=== PATIENT | male | born 1950 | race Caucasian/White ===

== ENCOUNTER 2019-09-23 19:25 | Inpatient (IN) | payer MEDICARE, BC ==
--- NOTE | 2019-09-23 22:10 | PDOC.FPRHP ---
- History of Present Illness Chief Complaint: SOB History of Present Illness: Mr. Trejo is a 69yoM with a history of DMII, HTN, HLD and CAD who presents to the ED as a transfer from [place] for increasing SOB. He saw Dr. Reed in the ED in [place] who recommended he be transferred to [facility] for further evaluation. He has been having increasing shortness of breath, dyspnea on exertion, orthopnea, and paroxysmal nocturnal dyspnea for the last 2-3 months. He also complains of nocturia. He states he has been sleeping in his recliner because he cannot lie flat. He also has exertional chest pain that resolves with rest. He has no known history of congestive heart failure, but has had a CABG x4 in 2000 and a heart cath with stent placement 3 years ago. Has seen his PCP, Dr. Casper, recently and was recommended that he see a barmaid. He has an appt scheduled for 10/07 but could not be seen sooner and his symptoms have become intolerable. - Allergies/Adverse Reactions Allergies Allergy/AdvReac Type Severity Reaction Status Date / Time tramadol Allergy Verified 12/13/16 15:20 - Home Medications Medication Instructions Recorded Confirmed Type Aspirin [Ecotrin] 325 mg PO DAILY 10/25/16 09/23/19 History Fenofibrate Nanocrystallized 145 mg PO DAILY 10/25/16 09/23/19 History [Fenofibrate] Glyburide/Metformin HCl 2 tablet PO BID-WM 10/25/16 09/23/19 History [glyBURIDE/metFORMIN] Metoprolol Succinate [Toprol XL] 50 mg PO DAILY 10/25/16 09/23/19 History Multivitamin [Multivitamins] 1 tablet PO DAILY 10/25/16 09/23/19 History Pioglitazone HCl [Actos] 45 mg PO DAILY 10/25/16 09/23/19 History Isosorbide Mononitrate [Imdur] 120 mg PO DAILY 12/14/16 09/23/19 History Atorvastatin Calcium 80 mg PO DAILY 09/23/19 09/23/19 History Clopidogrel Bisulfate [Plavix] 75 mg PO DAILY 09/23/19 09/23/19 History Lisinopril 10 mg PO DAILY 09/23/19 09/23/19 History - History PMHx: DMII HTN HLD CAD (stents x2) PSHx: Bilateral shoulder surgeries Knee surgery (right) Left arm tendon repair CABG x4 2000 Normal colonoscopy 2018 FHx: Father: HTN, Mother: Colon cancer (60s) Sister: CAD Social: Social drinker (Sunday nights), denies tobacco or illicit drugs. Former smoker, quit 2000, smoked 1ppd x 40 years. - Review of Systems General: denies: fever/chills, weight/appetite/sleep changes, night sweats, fatigue Eyes: reports: vision changes. denies: eye pain ENT: denies: nasal congestion, rhinorrhea Respiratory: reports: shortness of breath. denies: cough, congestion Cardiovascular: reports: chest pain, edema, paroxysmal nocturnal dyspnea, orthopnea Gastrointestinal: denies: nausea, vomiting, diarrhea, constipation, abdominal pain, GI bleeding Genitourinary: denies: incontinence, dysuria, polyuria Skin: denies: rashes, lesions Musculoskeletal: denies: pain, tenderness, stiffness Neurological: denies: numbness, syncope, weakness - Vital signs Selected Entries 09/24/19 01:00 Temperature 97.3 F L Pulse Rate 72 Blood Pressure 130/59 L [Semi-Fowlers] Respiratory 18 Rate O2 Sat by Pulse 95 Oximetry Oxygen Flow 2 Rate - Physical Exam Constitutional: NAD, awake, alert and oriented HEENT: normocephalic and atraumatic, PERRLA, EOMI, conjunctiva clear, grossly normal vision, grossly normal hearing, MMM Neck: supple, FROM, trachea midline Heart: RRR, normal S1/S2, no murmurs/rubs/gallops, pulses present -Heart: 1+ edema to the breen bilaterally Lungs: CTAB, no respiratory distress, good air movement, no rales/rhonchi, no wheezing Abdomen: soft, non-tender, bowel sounds present Musculoskeletal: normal structure, normal tone Neurological: no focal deficit, CN II-XII intact Skin: no rash/lesions, good turgor, capillary refill <2 seconds Heme/Lymphatic: no unusual bruising or bleeding, no purpura, no petechia Psychiatric: normal mood and affect, good judgment and insight FMR H&P: Results - Labs Lab results: Laboratory Tests 09/23/19 09/24/19 21:08 00:26 Troponin I 0.010 Less than 0.010 Laboratory Tests 09/23/19 09/23/19 09/23/19 13:00 13:00 13:00 WBC 4.7 L RBC 4.49 L Hgb 12.2 L Hct 41.4 L Plt Count 195 D-Dimer 2.25 H Sodium Potassium Chloride Carbon Dioxide Anion Gap BUN Creatinine Estimated GFR (MDRD) Calcium Total Bilirubin AST ALT Alkaline Phosphatase Troponin I Less than 0.010 B-Natriuretic Peptide Serum Total Protein Albumin Globulin Albumin/Globulin Ratio 09/23/19 09/23/19 09/23/19 13:00 13:00 21:08 WBC RBC Hgb Hct Plt Count D-Dimer Sodium 144 Potassium 4.0 Chloride 104 Carbon Dioxide 27 Anion Gap 17 BUN 14 Creatinine 1.20 Estimated GFR (MDRD) 60 Calcium 8.3 Total Bilirubin 0.5 AST 20 ALT 19 Alkaline Phosphatase 99 Troponin I 0.010 B-Natriuretic Peptide 85.1 Serum Total Protein 7.0 Albumin 4.2 Globulin 2.8 Albumin/Globulin Ratio 1.5 09/24/19 00:26 WBC RBC Hgb Hct Plt Count D-Dimer Sodium Potassium Chloride Carbon Dioxide Anion Gap BUN Creatinine Estimated GFR (MDRD) Calcium Total Bilirubin AST ALT Alkaline Phosphatase Troponin I Less than 0.010 B-Natriuretic Peptide Serum Total Protein Albumin Globulin Albumin/Globulin Ratio - EKG Interpretation EKG: NSR, rate 66BPM. T wave inversions in V1 V2 V3. - Radiology Interpretation Chest x-ray Status: report reviewed by me (Mild fluid overload suggestive of congestive heart failure.) CT scan - chest Status: report reviewed by me (CTA: No left sided pleural effusion or pericaridal effusion. Moderate right sided pleural effusion w/ adjacent atelectasis. No evidence of pulmonary embolism or thoracic aortic aneurysm or dissection.) FMR H&P: A/P - Plan CHF, new onset - Patient is unaware of this diagnosis. Has significant cardiac history. - Dr. Reed aware of patient, will consult him in the morning. - Echo ordered for AM - 40mg Lasix BID - NPO at midnight for possible procedure tomorrow, [place] note mentioned possible cath. - HF clinic consulted, rehab screen placed - BNP 85.1. Chest X-ray showed evidence of fluid overload. CTA showed evidence of right sided pleural effusion. Stable Angina vs Deconditioning - Initial EKG showed ST depressions in leads I, II and T-wave inversions in V1- v3. Repeat EKG showed resolution of ST depressions. - Significant CAD history DMII - On oral medications. - Will restart home medications tomorrow after cardiology evaluation. HTN - Resume home medications HLD - Resume home medications Anemia - Hemoglobin 12.4 - iron studies, b12, rbc folate ordered Disposition/LOS: Dispo: Stable, inpatient, likely LOS > 48 hours. Diet: NPO after midnight IV fluids: SL Code Status: Full FMR H&P: Upper Level - Plan Date/Time: 09/23/192209 PCP: Pennie HPI: This is a 69 yo gentleman being admitted for workup of new onset CHF. Significant hx includes CABG and CAD with stents x2 three years ago. 40 pack- year smoking history. He stopped smoking in 2000. He saw Dr. Reed in the office at [place] today and had an o2 sat in the 80s and thus was sent to the ED. The patient states that for the last 3 months or so he has been getting progressively more short of breath. He has been sleeping in his recliner most nights as this is more comfortable than laying down for him. The patient states that at baseline he would be able to walk around the grocery store but if he goes fast he would get short of breath. Additionally, he states that he consistently gets chest pressure with exertion which resolves with rest. He is having no pain at the moment. REVIEW OF SYSTEMS: Gen: no fever, chills, or sweats Neuro: no numbness/tingling, no weakness, denies headache Eyes: no visual changes ENT: no hearing changes, no sore throat, no runny nose Resp: see hpi Card: see hpi GI: no N/V/D, no abdominal pain : no dysuria, no hematuria MSK: no myalgias, no joint pain/stiffness Heme: no easy bruising/bleeding, no blood thinners Skin: no rash, no erythema Vitals: T: 97.5 R: 18 BP: 149/87 P:67 Sat: 95% on 1L PHYSICAL EXAMINATION: General: NAD, alert and oriented x3 HEENT: PERRLA, EOMI, normal sclera, oropharynx without erythema or exudate Neck: Supple. Full ROM. Heart/Cardiovascular System: RRR, Cap refill < 3 seconds, no rub, no murmur Lungs/Respiratory System: clear to auscultation bilaterally. No increased work of breathing. Abdomen/Gastro-Intestinal System: no abdominal tenderness, normal bowel sounds, no masses, no organomegaly Extremities: Warm extremities. +1 edema at ankles bilaterally Neuro: No gross deficits appreciated. CN 2-12 grossly intact Psychiatry: Awake, Alert and cooperative with exam Skin: No lesions, rashes, or ulcers Musculoskeletal: Full ROM A/P: # New-onset CHF - Patient denies having this diagnosis in the past - Is on BB, Johnathan-I at home - Echo, Lasix 40mg BID, consult Dr. Reed in AM, note from [place] mentions plan for cath o Npo at midnight - HF clinic consulted, rehab screen placed - BNP 85.1, CXR shows mild pulm edema, no effusion # Stable Angina, Deconditioning - Initial EKG showed ST dep I, II and T inv V1-v3, ST dep resolved on repeat - Trop neg x2 - Hx of cabg, stent x2 three years ago - CTA neg for PE # DMII - Restart home meds after cards eval # HTN, HLD - home meds # Anemia - hgb 12.4 - iron studies, b12, rbc folate ordered Fluids: TKO Code status: full PPx: heparin Dispo: >2 midnights
[2019-09-23] MEDS ORDERED: Acetaminophen 325 MG TAB PO PRN (23:00)
[2019-09-24 00:52] LABS: Troponin I Less than 0.010 ng/mL (< 0.028)
[2019-09-24 02:06] VITALS: BMI 32.9
[2019-09-24 05:25] LABS: Anion Gap 18 mmol/L (10-20); BUN (Urea Nitrogen) 16 mg/dL (8.4-25.7); Calc. Creatinine Clearance 93 mL/min (70-130); Calcium 8.6 mg/dL (7.8-10.44); Carbon Dioxide 24 mmol/L (23-31); Chloride 103 mmol/L (98-107); Estimated GFR-MDRD 71; Glucose 111 mg/dL (80-115); Iron 65 ug/dL (65-175); Iron Binding Capacity, Total 451 mcg/dL (261-462); Potassium 4.4 mmol/L (3.5-5.1); Sodium 141 mmol/L (136-145)
[2019-09-24] MEDS: Furosemide 40 MG/4 ML VIAL SLOW IVP SCH ×2 (05:28→14:20)
[2019-09-24 06:03] LABS: Ferritin 38.44 ng/mL (22-322)
--- NOTE | 2019-09-24 06:24 | PDOC.FM ---
- Subjective Subjective: Pt c/o being SOB overnight, but that it has improved since being here. Pt states he was Dx with COPD by Dr. Boyce, and prescribed an inhaler he only used for a little while. Never refilled script. Pt never had a sleep study, but one was ordered for suspected AAYUSH. Denies CP. - Objective MAR Reviewed: Yes Vital Signs & Weight: Vital Signs (12 hours) Temp Pulse Resp BP Pulse Ox 09/24/19 04:00 97.4 F L 80 18 137/67 93 L 09/24/19 01:00 97.3 F L 72 18 130/59 L 95 Weight Weight 99.847 kg Result Diagrams: 09/24/19 03:30 Phys Exam - Physical Examination Constitutional: NAD HEENT: PERRLA, moist MMs, sclera anicteric Neck: no nodes, supple, full ROM Respiratory: no wheezing, no rales, no rhonchi, clear to auscultation bilateral Cardiovascular: RRR, no significant murmur, no rub Gastrointestinal: soft, non-tender, no distention, positive bowel sounds obese Musculoskeletal: no edema, pulses present Neurological: non-focal, normal sensation, moves all 4 limbs Psychiatric: normal affect, A&O x 3 Skin: no rash, normal turgor, cap refill <2 seconds Dx/Plan (1) CHF (congestive heart failure) Code(s): I50.9 - HEART FAILURE, UNSPECIFIED Status: Acute (2) Diabetes mellitus, type II Status: Acute (3) HTN (hypertension) Code(s): I10 - ESSENTIAL (PRIMARY) HYPERTENSION Status: Acute (4) HLD (hyperlipidemia) Code(s): E78.5 - HYPERLIPIDEMIA, UNSPECIFIED Status: Acute (5) CAD (coronary artery disease) Code(s): I25.10 - ATHSCL HEART DISEASE OF [place] CORONARY ARTERY W/O ANG PCTRS Status: Acute (6) COPD (chronic obstructive pulmonary disease) Status: Chronic - Plan Plan: 69 y/o M admited for new onset CHF for further evaluation and treatment. 1. CHF, new onset - Patient is unaware of this diagnosis. Has significant cardiac history. - Dr. Reed aware of patient, will consult him in the morning. - Echo ordered for AM - 40mg Lasix BID - NPO at midnight for possible procedure tomorrow, [place] note mentioned possible cath. - HF clinic consulted, rehab screen placed - BNP 85.1. Chest X-ray showed evidence of fluid overload. CTA showed evidence of right sided pleural effusion. 2. Stable Angina vs Deconditioning - Initial EKG showed ST depressions in leads I, II and T-wave inversions in V1- v3. Repeat EKG showed resolution of ST depressions. - Significant CAD history 3. DMII - On oral medications. - Will restart home medications tomorrow after cardiology evaluation. 4. HTN - Resume home medications 5. HLD - Resume home medications 6. Anemia - Hemoglobin 12.4 - iron studies, b12, rbc folate ordered 7. COPD - Pt dx by Dr. Boyce - Will prescribe Spriva upon d/c. Disposition/LOS: Dispo: Stable, inpatient, likely LOS > 48 hours. Diet: NPO after midnight IV fluids: SL Code Status: Full
[2019-09-24] MEDS: Heparin 5,000 UNITS/ML VIAL SC SCH ×3 (09:27→19:35)
[2019-09-24] MEDS: Aspirin 81 mg Enteric Coated Tablet PO SCH (09:29)
[2019-09-24] MEDS: Fenofibrate Nanocrystallized 145 MG TAB PO SCH (09:30)
[2019-09-24] MEDS: Lisinopril 10 MG TAB PO SCH (09:30)
[2019-09-24] MEDS: Multivitamin W/ Minerals 1 TAB PO SCH (09:30)
[2019-09-24] MEDS ORDERED: Ferrous Sulfate 325 MG TAB PO SCH ×2 (10:00→10:15)
[2019-09-24] MEDS ORDERED: Cyanocobalamin (Vitamin B-12) 1,000 MCG TAB PO SCH ×2 (10:00→10:15)
[2019-09-24 11:40] LABS: Actual Bicarbonate (HCO3a) 33.2 mEq/L (22-28); Analyzer IN Cardio OR; Base Excess (BEa) 7.3 mEq/L (-2.0 to +3.0); CO2 Tension 52.6 mmHg (35.0-45.0); Calcium, Ionized 1.07 mmol/L (1.12-1.30); Carboxyhemoglobin (COHb) 1.7 gm% (0.0-3.0); Hemoglobin (Hb) 12.7 g/dL (14.0-18.0); Potassium - ABG Lab 3.67 mmol/L (3.70-5.30); pH, Arterial 7.42 (7.35-7.45)
[2019-09-24 11:41] LABS: O2 Tension (PaO2) 48.8 mmHg (> 70.0)
[2019-09-24 11:42] LABS: Puncture Site LB
--- NOTE | 2019-09-24 11:44 | PRG ---
DATE OF SERVICE: 09/24/2019 Mr. Trejo is a very pleasant, obese 69-year-old man, who saw Dr. Reed at [place] [facility] yesterday. At that time, he had presented with a 2-week history of increased dyspnea on exertion, paroxysmal nocturnal dyspnea, and orthopnea. Dr. Reed recommended that he come to our ER, where he was subsequently admitted for heart failure workup. He also has a history of COPD and saw a clipper machine within the last year. He was told at one point that he needs a sleep study. He is a very obese gentleman and looks like he likely does have AAYUSH. In the event, we are awaiting further workup from Dr. Reed. We will also check a room air arterial blood gas. He has already been found to have an iron deficiency anemia and B12 deficiency, and we are reinstituting treatment for these as well. Job ID: [id number]
[2019-09-24] MEDS ORDERED: Cyanocobalamin 1000 MCG/ML VIAL IM SCH (14:45)
[2019-09-24] MEDS ORDERED: HumaLOG 300 UNITS/3 ML VIAL SC PRN (17:35)
[2019-09-24] MEDS ORDERED: Dextrose 50% Abboject 50 ML SYRINGE SLOW IVP PRN (17:35)
[2019-09-24] MEDS ORDERED: Dextrose 5% in Water 1,000 ML IV PRN (17:35)
--- NOTE | 2019-09-24 18:19 | CON ---
DATE OF CONSULTATION: 09/24/2019 REASON FOR CONSULTATION: Shortness of breath. HISTORY OF PRESENT ILLNESS: Mr. Trejo is a very pleasant 69-year-old white gentleman, very well known to myself, who comes to the hospital for shortness of breath. He was seen yesterday in my satellite clinic in [place]. He described 2 to 3 months worth of worsening dyspnea on exertion that had progressed to PND and orthopnea 2 or 3 weeks prior. He had been sleeping on his recliner for the last few weeks. He had lower extremity edema and reduced breath sounds, so I referred him to the ER there in [place], where he was admitted and transferred over to [place] for further care. He has received IV Lasix and is already diuresed and feeling better, but he continues to have shortness of breath and need for supplemental oxygenation. PAST MEDICAL HISTORY: 1. Type 2 diabetes. 2. Hypertension. 3. Hyperlipidemia. 4. CAD, status post CABG in 2000 and stents more recently to the right coronary artery. PAST SURGICAL HISTORY: 1. Bilateral shoulder surgeries. 2. Knee surgery. 3. Left arm tendon repair. 4. CABG x4 in 2000. 5. Colonoscopy in 2018, which was normal. FAMILY HISTORY: Father with high blood pressure. Mother with colon cancer. Sister with CAD. SOCIAL HISTORY: Social alcohol use. No tobacco or drug use. Quit smoking in 2000. OUTPATIENT MEDICATIONS: 1. Aspirin 325 a day. 2. Fenofibrate. 3. Glyburide. 4. Toprol-XL 50 mg a day. 5. Multivitamin daily. 6. Actos 45 mg a day. 7. Isosorbide mononitrate 120 mg a day. 8. Atorvastatin 80 mg a day. 9. Plavix 75 mg a day. 10. Lisinopril 10 mg a day. ALLERGIES: TRAMADOL. REVIEW OF SYSTEMS: A 12-point review of systems was done and was all negative unless stated in the history of present illness. PHYSICAL EXAMINATION: VITAL SIGNS: Temperature 98.0, pulse 86, respiratory rate 18, saturations 94% on 2 L nasal cannula, blood pressure 90/57. GENERAL: Awake, alert, and oriented x3. No distress. HEENT: Normocephalic and atraumatic. NECK: Supple. LUNGS: Reduced breath sounds at the right base. Dullness to percussion. CARDIOVASCULAR: S1 and S2. No S3 or S4. Grade 2/6 systolic ejection murmur. ABDOMEN: Soft. Positive bowel sounds. EXTREMITIES: No edema. SKIN: Warm and dry. LABORATORY DATA: Laboratory work was reviewed. White count of 4.7, hemoglobin 12.2, hematocrit 41, platelet count of 195. Coags, D-dimer was elevated. ABG was reviewed. Chemistry on arrival; his BUN was 14, creatinine was 1.2, and glucose of 192. Lactic acid was normal. Calcium is 8.3. Troponin has been negative x3. LFTs were normal. BNP was 85. Albumin of 4.2. EKG was reviewed. Echocardiogram was reviewed, EF at 50% to 55% with grade 1 diastolic dysfunction, and calcified aortic valve with immobile noncoronary cusp, so hemodynamic measurements suggest moderate aortic valve stenosis. CT of the chest showed moderate-sized right-sided pleural effusion. ASSESSMENT: 1. Acute on chronic diastolic heart failure, improved. 2. Right-sided pleural effusion. 3. Coronary artery disease, status post bypass and stenting more recently, stable. No acute coronary syndrome. PLAN: 1. We would continue IV Lasix for one more day. We would consult Pulmonary/Critical Care. I already spoke with Dr. Mcclelland about the CAT scan and the situation, and he will evaluate the patient for possible thoracentesis. 2. Continue other medications for now. Okay to hold Plavix for now until procedures performed. Thank you for letting us to participate in the care of your patient. We will follow. Job ID: [id number]
[2019-09-24] MEDS: HumaLOG 300 UNITS/3 ML VIAL SC PRN (18:34)
--- NOTE | 2019-09-24 20:59 | CON ---
DATE OF CONSULTATION: 09/24/2019 SERVICE: Pulmonary Medicine. REASON FOR CONSULTATION: Pleural effusion. HISTORY OF PRESENT ILLNESS: The patient is a 69-year-old white male with past medical history significant for coronary artery disease. He had a stent placed and has a history of coronary artery bypass graft. He was in his usual state of health until about a month ago when he had onset of dyspnea on lying down. Immediately when he lies down, he feels short of breath. It takes about 30 to 45 seconds for him to catch his breathe. After this point, he feels better. He was also having increasing dyspnea on exertion. This has been slowly progressive over a period of a month. He denies any fevers or chills. He is not coughing or bringing up any phlegm. He has a remote history of what looked like obstructive sleep apnea. He is referred for polysomnogram, but never carried this out. Otherwise, he is in his usual state of health. He came to the emergency department, was given some Lasix. He has had significant urine output. Now, he can lie flat without much difficulty. There are no significant overnight events. He actually feels like he has returned to baseline. He got up and walked without oxygen, his saturations fell to 85%. He felt just fine, but he was put back on oxygen anyway. PAST MEDICAL HISTORY: 1. Coronary artery disease. 2. Chronic diastolic heart failure. 3. Type-2 diabetes mellitus. 4. Hypertension. 5. Dyslipidemia. PAST SURGICAL HISTORY: 1. Shoulder surgeries, bilateral. 2. Knee surgery, right. 3. Arm tendon repair, left. 4. Coronary artery bypass graft x4 vessels. 5. Colonoscopy. FAMILY HISTORY: Noncontributory. SOCIAL HISTORY: He drinks particularly on the weekends. Denies any alcohol or illicit drugs otherwise. He has no exposure to chemicals, dust, asbestos, or tuberculosis. ALLERGIES: TRAMADOL. MEDICATIONS: List of his inpatient medications was reviewed. No specific updates were made at this time. REVIEW OF SYSTEMS: General; head, ears, eyes, nose, throat; cardiovascular; respiratory; GI; ; musculoskeletal; neurologic; and skin are negative except as mentioned in the HPI. PHYSICAL EXAMINATION: VITAL SIGNS: Afebrile. Pulse 77, blood pressure 129/64, respirations 18, saturation 94%, currently on room air. GENERAL: The patient is awake and alert, in no apparent distress. LUNGS: There is a reduced air entry. There is a prolonged expiratory phase, but I do not hear any polyphonic wheezing or crackles present. HEART: Normal rate, regular. ABDOMEN: Soft, nontender, nondistended. Bowel sounds are positive. MUSCULOSKELETAL: No cyanosis or clubbing. No pitting in the bilateral lower extremities. NEUROLOGIC: Grossly nonfocal. LABORATORY DATA: Sodium 141, potassium 4.4, anion gap 18. Creatinine 1.04, which is at baseline. Basic metabolic profile is otherwise unremarkable. Iron profile falls within the normal limits. B12 is low and folate falls within normal limits. PH 7.42, pCO2 of 52, pO2 of 48. Hemoglobin 12.2, MCV 92. RDW is small. D- dimer 2.25. IMAGING DATA: CTA of the chest demonstrates no evidence of a pulmonary embolism. That being said, there is a right-sided pleural effusion. It has the appearance of not being simply layering. That being said, I feel it is probably some chest scar tissue preventing a simple effusion from developing. Mild interstitial fullness is present, there is clear atelectasis in the right lung base. The RV and RA are generous. The left atrium is also generous. There is minimal reflux of contrast into the inferior vena cava. ASSESSMENT: 1. Acute hypoxic respiratory failure. 2. [id number]-xdddeop diastolic heart failure, suspected. 3. Chronic obstructive pulmonary disease based on what the patient is telling me from outpatient PFTs. 4. Vitamin B12 deficiency. 5. Obstructive sleep apnea, suspected. DISCUSSION AND PLAN: The patient has done absolutely wonderful with nothing, but diuretics. At this point, he can lie supine without shortness of breath that he has been experiencing for the last month. As such, I think it would be perfectly reasonable to hold his Plavix for the time being, and have him return to clinic with Dr. Boyce in the outpatient setting in 1 to 2 weeks with a preclinic chest x- ray. At that point, the patient can be referred for polysomnogram to investigate suspected obstructive sleep apnea. If he remains in the hospital, Dr. Boyce will follow, but from my perspective, he is likely stable for discharge today or tomorrow if Cardiology is okay with it. 70 minutes have been devoted to this patient in various activities. I personally reviewed all imaging studies and laboratory data noted within this document. For fifty percent of this time, I was interacting with the patient at the bedside or coordinating care with the care team. For the remainder of the time I was immediately available to the patient in the hospital unit. Job ID: [id number] [facility]
[2019-09-24] MEDS ORDERED: Atorvastatin Calcium 40 MG TAB PO SCH (21:00)
[2019-09-25] MEDS: Furosemide 40 MG/4 ML VIAL SLOW IVP SCH (05:32)
--- NOTE | 2019-09-25 06:33 | PDOC.FM ---
- Subjective Subjective: Pt denies any current CP or SOB. States his SOB has greatly improved since admission. down 2 lbs from admission. - Objective MAR Reviewed: Yes Vital Signs & Weight: Vital Signs (12 hours) Temp Pulse Resp BP Pulse Ox 09/25/19 04:00 97.7 F 68 16 90/50 L 94 L 09/24/19 20:00 97.4 F L 73 18 98/56 L 92 L 09/24/19 18:37 77 101/56 L Weight Weight 97.976 kg I&O: 09/23/19 09/24/19 09/25/19 06:59 06:59 06:59 Intake Total 360 Output Total 850 Balance -490 Result Diagrams: 09/24/19 03:30 Phys Exam - Physical Examination Constitutional: NAD HEENT: moist MMs, sclera anicteric Neck: no nodes, no JVD, supple, full ROM Respiratory: no wheezing, no rales, no rhonchi, clear to auscultation bilateral Cardiovascular: RRR, no rub Gastrointestinal: soft, non-tender, no distention, positive bowel sounds Musculoskeletal: no edema, pulses present Neurological: non-focal, normal sensation, moves all 4 limbs Psychiatric: normal affect, A&O x 3 Skin: no rash, normal turgor, cap refill <2 seconds Dx/Plan (1) CHF (congestive heart failure) Code(s): I50.9 - HEART FAILURE, UNSPECIFIED Status: Acute Qualifiers: Heart failure type: diastolic Heart failure chronicity: chronic Qualified Code(s): I50.32 - Chronic diastolic (congestive) heart failure (2) Diabetes mellitus, type II Status: Acute (3) HTN (hypertension) Code(s): I10 - ESSENTIAL (PRIMARY) HYPERTENSION Status: Acute (4) HLD (hyperlipidemia) Code(s): E78.5 - HYPERLIPIDEMIA, UNSPECIFIED Status: Acute (5) CAD (coronary artery disease) Code(s): I25.10 - ATHSCL HEART DISEASE OF [place] CORONARY ARTERY W/O ANG PCTRS Status: Acute (6) COPD (chronic obstructive pulmonary disease) Status: Chronic - Plan Plan: 69 y/o M admitted for new onset CHF for further evaluation and treatment. 1. CHF, new onset. HFpEF - Patient is unaware of this diagnosis. Has significant cardiac history. - Dr. Brianna consulted and following pt. Recommended full day of IV lasix therapy, hold plavix and out pt f/u with [facility]. - Echo: EF50-55%, grade 1/3 diastolic dysfunction. - 40mg Lasix BID - HF clinic consulted, rehab screen placed - BNP 85.1. Chest X-ray showed evidence of fluid overload. CTA showed evidence of right sided pleural effusion. - weight down 2 lbs since admission. Adequate diuresis. 2. Stable Angina vs Deconditioning - Initial EKG showed ST depressions in leads I, II and T-wave inversions in V1- v3. Repeat EKG showed resolution of ST depressions. - Significant CAD history 3. DMII - On oral medications. - Will restart home medications tomorrow after cardiology evaluation. 4. HTN - Resume home medications 5. HLD - Resume home medications 6. Anemia - Hemoglobin 12.4 - Consistent with iron and B12 deficiency - Started daily B12 and iron supplementation. 7. COPD - Pt dx by Dr. Boyce previously - Will prescribe Spriva upon d/c. - duonebs BID while hospitalized. - RA ABG: pH 7.42, CO2 52.6, O2 48.8, HCO3 33.2, A-a 35.18 - Will f/u with [facility] out pt and receive Polysomograpy and PFT's. Suspected AAYUSH. Disposition/LOS: Dispo: Stable, inpatient, likely LOS > 48 hours. Diet: NPO after midnight IV fluids: SL Code Status: Full
[2019-09-25] MEDS ORDERED: Ferrous Sulfate 325 MG TAB PO SCH (08:00)
[2019-09-25] MEDS ORDERED: Cyanocobalamin (Vitamin B-12) 1,000 MCG TAB PO SCH (09:00)
--- NOTE | 2019-09-25 09:53 | PRG ---
DATE OF SERVICE: 09/25/2019 SUBJECTIVE: Jay Jay Trejo is a 69-year-old gentleman, who is admitted with respiratory failure. He is feeling better. Less short of breath. OBJECTIVE: VITAL SIGNS: 2 L, respiratory rate 18, temperature 97, and blood pressure 108/59. CHEST: Decreased breath sounds. No wheezing. CARDIAC: Normal S1 and S2. No gallops. ABDOMEN: No masses. ASSESSMENT: 1. Morbid obesity. 2. Congestive heart failure. 3. Chronic obstructive pulmonary disease. PLAN: He can be discharged home on neb treatments. Outpatient sleep study. We will follow in the office. Job ID: [id number]
[2019-09-25] MEDS: Heparin 5,000 UNITS/ML VIAL SC SCH ×2 (09:56→14:59)
[2019-09-25] MEDS: Fenofibrate Nanocrystallized 145 MG TAB PO SCH (09:56)
[2019-09-25] MEDS: Aspirin 81 mg Enteric Coated Tablet PO SCH (09:56)
[2019-09-25] MEDS: Lisinopril 10 MG TAB PO SCH (09:57)
[2019-09-25] MEDS: Multivitamin W/ Minerals 1 TAB PO SCH (09:58)
--- NOTE | 2019-09-25 12:26 | PRG ---
DATE OF SERVICE: 09/25/2019 Mr. Trejo is resting quietly in bed and appears in no distress. The results of his arterial blood gases on room air were quite interesting with a pH of 7.42, pCO2 of 52.6, and PO2 of 48.8. These numbers suggest that he will be a candidate for long-term oxygen therapy and this has been explained to him. I believe his condition results from a combination of COPD, probable AAYUSH, and diastolic heart failure. He will need close followup for his condition and many medications. This has been explained to him and otherwise he is ready for discharge probably today. Job ID: [id number]
[2019-09-25] MEDS: HumaLOG 300 UNITS/3 ML VIAL SC PRN ×2 (12:36→17:06)
[2019-09-25 15:11] LABS: Folate,Hemolysate 490.9 ng/mL (Not Estab.); Hematocrit 38.3 % (37.5-51.0); RBC Folate Test Component 1282 ng/mL (>498)
[2019-09-25 17:29] VITALS: BP 114/59
--- NOTE | 2019-09-25 17:37 | PDOC.CPN ---
- Subjective Date: 09/25/19 Time: 17:34 Interval history: Doing better. Breathing better but still requiring O2 supplementation. - Review of Systems General: denies: fever/chills, weight/appetite/sleep changes, night sweats, fatigue Respiratory: reports: shortness of breath. denies: cough, congestion, exercise intolerance Cardiovascular: denies: chest pain, palpitation, edema, paroxysmal nocturnal dyspnea, orthopnea Gastrointestinal: denies: nausea, vomiting, diarrhea, constipation, abd pain, GI bleeding Musculoskeletal: denies: pain, tenderness, stiffness, swelling, arthritis/ arthralgias Neurological: denies: numbness, syncope, seizure, weakness - Objective Allergies/Adverse Reactions: Allergies Allergy/AdvReac Type Severity Reaction Status Date / Time tramadol Allergy Verified 12/13/16 15:20 Visit Medications: Current Medications Acetaminophen (Tylenol) 650 mg PO Q4H PRN PRN Reason: Headache/Fever/Mild Pain (1-3) Albuterol/Ipratropium (Duoneb) 3 ml NEB BID-RT [facility] Last Admin: 09/25/19 06:59 Dose: 3 ml Aspirin (Ecotrin) 81 mg PO DAILY [facility] Last Admin: 09/25/19 09:56 Dose: 81 mg Atorvastatin Calcium (Lipitor) 80 mg PO HS [facility] Last Admin: 09/24/19 19:36 Dose: 80 mg Cyanocobalamin (Vitamin B-12) 1,000 mcg PO DAILY [facility] Last Admin: 09/25/19 09:56 Dose: 1,000 mcg Dextrose/Water (Dextrose 50%) 25 gm SLOW IVP PRN PRN PRN Reason: Hypoglycemia Fenofibrate (Tricor) 145 mg PO DAILY [facility] Last Admin: 09/25/19 09:56 Dose: 145 mg Ferrous Sulfate (Feosol) 325 mg PO QAM-WM [facility] Last Admin: 09/25/19 09:56 Dose: 325 mg Furosemide (Lasix) 40 mg PO DAILY-AC [facility] Glucagon (Glucagon) 1 mg IM PRN PRN PRN Reason: Hypoglycemia Heparin Sodium (Porcine) (Heparin) 5,000 units SC TID [facility] Last Admin: 09/25/19 14:59 Dose: 5,000 units Dextrose/Water (D5w) 1,000 mls @ 0 mls/hr IV .Q0M PRN PRN Reason: Hypoglycemia Insulin Human Lispro (Humalog) 0 units SC .MILD SLIDING SCALE PRN PRN Reason: Mild Correctional Scale Last Admin: 09/25/19 17:06 Dose: 2 unit Insulin Human Lispro (Humalog) 0 units SC .BEDTIME SLIDING SC PRN PRN Reason: Bedtime Correctional Scale Iron/Minerals/Multivitamins (Theragran M) 1 tab PO DAILY [facility] Last Admin: 09/25/19 09:58 Dose: 1 tab Isosorbide Mononitrate (Imdur) 120 mg PO DAILY [facility] Last Admin: 09/25/19 09:57 Dose: Not Given Lisinopril (Zestril) 10 mg PO DAILY [facility] Last Admin: 09/25/19 09:57 Dose: 10 mg Metoprolol Succinate (Toprol Xl) 50 mg PO DAILY [facility] Last Admin: 09/25/19 09:57 Dose: 50 mg Sodium Chloride (Flush - Normal Saline) 10 ml IVF Q12HR [facility] Last Admin: 09/25/19 09:58 Dose: 10 ml Sodium Chloride (Flush - Normal Saline) 10 ml IVF PRN PRN PRN Reason: Saline Flush Vital Signs & Weight: Vital Signs Temp Pulse Pulse Pulse Resp BP BP 09/25/19 17:10 09/25/19 15:30 97.4 F L 68 16 09/25/19 11:10 97.3 F L 73 20 09/25/19 11:04 77 71 112/55 L 106/58 L 09/25/19 07:10 97.9 F 73 18 09/25/19 06:59 75 16 BP BP Pulse Ox Pulse Ox Pulse Ox 09/25/19 17:10 114/59 L 09/25/19 15:30 91/50 L 96 09/25/19 11:10 112/55 L 96 09/25/19 11:04 97 94 L 09/25/19 07:10 108/59 L 97 09/25/19 06:59 97 Weight 216 lb - Physical Exam General: alert & oriented x3 HEENT: mucus membranes moist Neck: supple neck Cardiac: regular rate and rhythm Lungs: decreased breath sounds Neuro: grossly intact Abdomen: active bowel sounds, soft, non-tender Extremities: no edema Skin: clear Musculoskeletal: no pain - Labs Result Diagrams: 09/24/19 03:30 Troponin/CKMB Troponin I Less than 0.010 ng/mL (< 0.028) 09/24/19 00:26 - Telemetry Sinus rhythms and dysrhythmias: sinus rhythm - Assessment/Plan Assessment/Plan: 1. Acute on chronic diastolic CHF. 2. Pleural effusion. 3. CAD, stable. PLAN: - Continue PO lasix. - CV sable. - May discharge home. Will follow up in the office on Oct 07 already scheduled. - Pulmonary will re evaluate to see if pleural effusion needs tap. - Continue to be off plavix until effusion resolves.
[2019-09-25 17:59] VITALS: TEMP 97.6
[2019-09-26] MEDS ORDERED: Furosemide 40 MG TAB PO SCH (07:30)
--- NOTE | 2019-09-26 14:53 | DIS ---
DATE OF ADMISSION: 09/24/2019 DATE OF DISCHARGE: 09/25/2019 RESIDENT: Venice Ignacio DO ADMITTING PHYSICIAN: Issa Ortega MD DISCHARGE ATTENDING: Gabe Jimenez MD CONSULTS: Dr. Reed, Cardiology and Dr. Mcclelland, Pulmonology. PROCEDURE: Echocardiogram with ejection fraction 50% to 55% with grade 1/3 diastolic dysfunction. DIAGNOSES: 1. Heart failure with preserved ejection fraction new onset. 2. Stable angina versus deconditioning. 3. Diabetes mellitus type 2. 4. Hypertension. 5. Hyperlipidemia. 6. Anemia. 7. Chronic obstructive pulmonary disease. 8. Suspected obstructive sleep apnea with presumed pulmonary hypertension. DISCHARGE MEDICATIONS: 1. Tylenol 600 mg p.o. q.4 hours p.r.n. 2. Aspirin 81 mg p.o. daily. 3. Atorvastatin 80 mg p.o. q.h.s. 4. TriCor 145 mg p.o. daily. 5. Ferrous sulfate 325 mg p.o. daily. 6. Furosemide 40 mg p.o. daily. 7. Lisinopril 10 mg p.o. daily. 8. Metoprolol 50 mg p.o. daily. 9. Multivitamin one p.o. daily. 10. Vitamin B12 of 1000 mcg p.o. daily. 11. Glyburide/metformin 5/500 mg two pills p.o. b.i.d. 12. Pioglitazone 45 mg p.o. daily. 13. Spiriva Respimat two inhaled daily. DISCONTINUED MEDICATIONS: Plavix and Imdur. Plavix is being held under the recommendations of Dr. Reed and Dr. Mcclelland until he follows up with Dr. Boyce, bsw outpatient. In case, he needs a thoracentesis at that followup appointment as he had a pleural effusion easily treated in hospital though with Lasix, but just in case he needs that thoracentesis then. Holding the Imdur states his blood pressure was around 90/50 throughout the last day of hospital stay. Well, this would drop down even more. The patient is following up because of that problem very quickly with Dr. Casper upon discharge on Sunday to recheck the blood pressure and re-evaluate starting the Imdur again. HISTORY OF PRESENT ILLNESS/HOSPITAL COURSE: Mr. Trejo is a 69-year-old male with a history of CAD, status post CABG and then two-vessel CABG stenting, COPD, hypertension, hyperlipidemia, diabetes mellitus type 2, coming in with shortness of breath that has been worsening for the last 2 months, worse while lying flat and waking up in the middle of night with PND. The patient was seen by Dr. Reed, who did about a day and a half of IV Lasix therapy and Dr. Mcclelland who stated he will follow up with Dr. Boyce outpatient for possible thoracentesis to hold Plavix in the meantime. He also suspected AAYUSH and the patient is to have a polysomnogram with Dr. Boyce outpatient. The patient has a previous diagnosis of COPD per Dr. Boyce outpatient and had never filled his inhalers he was started on. I discharged him on Spiriva inhaler to use daily and instructed him how to do so. He is going to follow up with Dr. Boyce in 1 to 2 weeks' time and be started on maintenance COPD medications. The patient's iron studies were consistent with iron deficiency anemia as well as B12 deficiency. He was started on a B12 of 1000 mcg daily as well as 325 ferrous sulfate supplementation daily. The patient was hypoxic upon entry to the hospital and remained so without being on nasal cannula oxygen. The patient did well with just about 1.5 L of oxygen and was saturating at 97%, but desats upon walking. The patient is going to have a new requirement for home oxygen. Order was placed and the patient was discharged home today with oxygen and new medication and instructions to hold Plavix and Imdur. The patient understands all followup instructions and will see Dr. Casper to reiterate those on Sunday morning. DISPOSITION: The patient is stable upon discharge. Has lost a total of 2 pounds body weight while in the hospital and showed adequate diuresis. DISCHARGE INSTRUCTIONS: 1. Location: To home. 2. Diet: Heart healthy and consistent carb with fluid restriction of less than 1500 mL daily. 3. Activity: As tolerated. 4. Followup: Follow up with Dr. Casper on Sunday, Dr. Reed on 10/07, and Dr. Boyce in 1 to 2 weeks. Job ID: [id number]
--- NOTE | 2019-09-27 03:52 | PQF ---
[employer] Director Audience Marketing Crystal Reports Winform ViewerKATIA GUZMÁN DOC CARMICHAEL [id number] [facility]255 [id number] CLINICAL DOCUMENTATION CLARIFICATION FORM: POST DISCHARGE Addendum to original discharge summary date: ____ Late entry note date: __ DATE:09/27/2019 ATTN: DOC CARMICHAEL Please exercise your independent, professional judgment in responding to the clarification form. Clinical indicators are provided on the bottom of this form for your review Please check appropriate box(s) to clarify if the following diagnosis has been ruled in or ruled out: Acute hypoxic Respiratory Failure (CDI/Coding list diagnosis here) [ ] Ruled in diagnosis [ ] Continue to treat [ ] Resolved [ ] Ruled out diagnosis [ ] Cannot rule out diagnosis [ ] Other diagnosis [ ] Unable to determine In addition, please specify: Present on Admission (POA): [ ] Yes [ ] No [ ] Unable to determine For continuity of documentation, please document condition throughout progress notes and discharge summary. Thank You. CLINICAL INDICATORS - SIGNS / SYMPTOMS / LABS Acute hypoxic respiratory failure - Documented in Consult note on 09/24 by Darby Mcmillan O2 saturation 92 on 09/24 - Documented in Vital Signs ABG pH 7.42 - Documented in Laboratory ABG pCO2 52.6 - Documented in Laboratory ABG pO2 - - Documented in Laboratory RISK FACTORS CAD Acute on chronic diastolic CHF HTN Obstructive Sleep Apnea TREATMENTS O2 delivery - Nasal cannula [employer] Director [employer] Marketing Crystal Reports Winform Viewer (This form is maintained as a part of the permanent medical record) 2014 [employer]. All Rights Reserved Denisse [email or web address] [not provided] MTDD
== END 2019-09-25 18:40 | disposition home or self-care (01) | DRG 291 ==
LOC: ERS 19:25 → 2NO 09-24 00:39
PROVIDERS: ADMIT Family Medicine; ATTEND Family Medicine
DX: I11.0 Hypertensive heart disease with heart failure (principal); J96.01 Acute respiratory failure with hypoxia; E11.9 Type 2 diabetes mellitus without complications; I50.33 Acute on chronic diastolic (congestive) heart failure; Z79.82 Long term (current) use of aspirin; Z79.899 Other long term (current) drug therapy; Z95.1 Presence of aortocoronary bypass graft; Z95.5 Presence of coronary angioplasty implant and graft; Z87.891 Personal history of nicotine dependence; D64.9 Anemia, unspecified; I25.119 Atherosclerotic heart disease of native coronary artery with unspecified angina pectoris; J44.9 Chronic obstructive pulmonary disease, unspecified; Z68.31 Body mass index [BMI] 31.0-31.9, adult; E53.8 Deficiency of other specified B group vitamins; Z79.02 Long term (current) use of antithrombotics/antiplatelets; E66.01 Morbid (severe) obesity due to excess calories; E78.5 Hyperlipidemia, unspecified; D50.9 Iron deficiency anemia, unspecified; I27.20 Pulmonary hypertension, unspecified
CPT/HCPCS: 36415; 36416; 80048; 82607; 82728; 82746; 82747; 82805; 83540; 83550; 84484; 85014; 93005; 93306; 93798; 94640; J1644; J1940; J3420; J7620

== ENCOUNTER 2019-09-30 10:19 | Outpatient (CLI) | payer MEDICARE, BC ==
--- NOTE | 2019-09-30 11:11 | RAD ---
EXAM: Chest Two Views 09/30/2019 11:08 AM HISTORY: Dyspnea COMPARISON: Prior exam dated September 23, 2019 FINDINGS: Heart: There is moderate cardiomegaly Pulmonary vessels: There is mild pulmonary vascular congestion Costophrenic angles: There are small right and tiny left pleural effusions Lungs: There is mild right basilar atelectasis Pneumothorax: None. Osseous structures:Stable midline sternotomy changes Additional findings: None. IMPRESSION: Findings suspicious for CHF.
== END 2019-09-30 10:20 | disposition home or self-care (01) ==
LOC: RAD 10:19
PROVIDERS: ATTEND Internal Medicine
DX: R06.00 Dyspnea, unspecified (principal)
CPT/HCPCS: 71046

== ENCOUNTER 2019-10-09 19:30 | Outpatient (CLI) | payer MEDICARE, BC | END 2019-10-09 19:31 | disposition home or self-care (01) | LOC: SLEEPLAB 19:30 | PROVIDERS: ATTEND Internal Medicine Pulmonary Disease | DX: G47.33 Obstructive sleep apnea (adult) (pediatric) (principal); R53.83 Other fatigue; R09.89 Other specified symptoms and signs involving the circulatory and respiratory systems; J44.9 Chronic obstructive pulmonary disease, unspecified; I51.89 Other ill-defined heart diseases; R09.02 Hypoxemia; R00.0 Tachycardia, unspecified; E66.9 Obesity, unspecified; Z68.32 Body mass index [BMI] 32.0-32.9, adult | CPT/HCPCS: 95811 ==

== ENCOUNTER 2023-11-18 01:15 | Inpatient (IN) | payer MEDICARE ==
[2023-11-18 02:51] VITALS: BMI 32.5
[2023-11-18] MEDS ORDERED: Acetaminophen 325 MG TAB PO PRN ×2 (03:00→03:07)
[2023-11-18] MEDS ORDERED: Glucagon 1 MG/ML KIT IM PRN (03:07)
[2023-11-18] MEDS ORDERED: Ondansetron PF 4 MG/2 ML Vial IVP PRN (03:07)
[2023-11-18] MEDS ORDERED: Guaifenesin DM 100-10/5 ML UDCUP PO PRN (03:07)
[2023-11-18] MEDS ORDERED: Dextrose 5% in Water 1,000 ML IV PRN (03:07)
[2023-11-18] MEDS ORDERED: Dextrose 50% Abboject 50 ML SYRINGE SLOW IVP PRN (03:07)
[2023-11-18] MEDS ORDERED: Ondansetron ODT 4 MG TAB PO PRN (03:07)
[2023-11-18] MEDS ORDERED: Ipratropium/Albuterol 3 ML NEB NEB PRN (03:07)
[2023-11-18 06:02] LABS: #Monocytes 0.7 thou/uL (0.11-0.59); #Neutrophils 9.5 thou/uL (1.40-6.50); %Basophils 0.3 % (0.0-1.0); %Lymphocytes 7.6 % (21.0-51.0); %Monocytes 6.4 % (0.0-10.0); %Neutrophils 85.1 % (42.0-75.0); Hematocrit 35.6 % (42.0-52.0); Hemoglobin 11.1 g/dL (14.0-18.0); Mean Corpuscular HGB CONC 31.2 g/dL (32.0-36.0); Mean Corpuscular Hemoglobin 29.1 pg (27.0-31.0); Mean Corpuscular Volume 93.2 fl (78.0-98.0); Mean Platelet Volume 10.7 fL (7.4-10.4); Platelet Count 134 10x3/uL (130-400); RBC Distribution Width 14.2 % (11.5-14.5); Red Blood Cell (RBC) Count 3.82 mill/uL (4.70-6.10); White Blood Cell (WBC) Count 11.1 10x3/uL (4.8-10.8)
[2023-11-18 06:23] LABS: Anion Gap 13 mmol/L (10-20); BUN (Urea Nitrogen) 15 mg/dL (8.4-25.7); Calc. Creatinine Clearance 103 mL/min (70-130); Calcium 7.6 mg/dL (7.8-10.44); Carbon Dioxide 26 mmol/L (23-31); Chloride 106 mmol/L (98-107); Estimated GFR 90; Glucose 93 mg/dL (83-110); Potassium 3.2 mmol/L (3.5-5.1); Sodium 142 mmol/L (136-145)
[2023-11-18] MEDS ORDERED: Ipratropium/Albuterol 3 ML NEB NEB SCH (07:00)
[2023-11-18 08:02] LABS: Legionella Urinary Ag Negative (Negative); Strep pneumo Urine Ag NEGATIVE (NEGATIVE)
[2023-11-18] MEDS ORDERED: FLU VACC QS2023(65UP)/MF59C/PF 60 MCG/0.5 ML SYRINGE IM ONE (09:00)
[2023-11-18] MEDS ORDERED: Potassium Chloride 20 MEQ TAB PO SCH (18:30)
[2023-11-18] MEDS ORDERED: guaiFENesin/DM ER PO SCH (18:45)
[2023-11-18] MEDS: methylPREDNISolone Sod Succ 40 MG VIAL IVP SCH ×2 (18:45→23:47)
[2023-11-18] MEDS: Ipratropium/Albuterol 3 ML NEB NEB SCH ×2 (19:36→23:19)
[2023-11-18] MEDS: cefTRIAXone\\ROCEPHIN 1 GM in Sodium Chloride 0.9% 100 ML IVPB SCH (20:50)
[2023-11-18] MEDS: Doxycycline 100 MG CAP PO SCH (20:50)
[2023-11-19] MEDS: Ipratropium/Albuterol 3 ML NEB NEB SCH ×6 (02:01→23:31)
[2023-11-19 05:27] LABS: #Monocytes 0.1 thou/uL (0.11-0.59); #Neutrophils 7.9 thou/uL (1.40-6.50); %Basophils 0.1 % (0.0-1.0); %Eosinophils 0.4 % (0.0-10.0); %Lymphocytes 2.5 % (21.0-51.0); %Monocytes 1.6 % (0.0-10.0); %Neutrophils 94.8 % (42.0-75.0); Hematocrit 40.1 % (42.0-52.0); Hemoglobin 12.7 g/dL (14.0-18.0); Mean Corpuscular HGB CONC 31.7 g/dL (32.0-36.0); Mean Corpuscular Hemoglobin 28.7 pg (27.0-31.0); Mean Corpuscular Volume 90.5 fl (78.0-98.0); Mean Platelet Volume 12.3 fL (7.4-10.4); RBC Distribution Width 13.9 % (11.5-14.5); Red Blood Cell (RBC) Count 4.43 mill/uL (4.70-6.10); White Blood Cell (WBC) Count 8.4 10x3/uL (4.8-10.8)
[2023-11-19] MEDS: methylPREDNISolone Sod Succ 40 MG VIAL IVP SCH ×3 (05:34→17:32)
[2023-11-19 05:47] LABS: Platelet Count 85 10x3/uL (130-400)
[2023-11-19 06:02] LABS: CellaVision Operator ID lab.abc; Platelet Adequacy Comment Platelets Decreased; Polychromasia SLIGHT = 2-3 cells HPF (0-2); RBC Morphology Within Normal Limits
[2023-11-19 06:38] LABS: Anion Gap 21 mmol/L (10-20); BUN (Urea Nitrogen) 14 mg/dL (8.4-25.7); Calc. Creatinine Clearance 87 mL/min (70-130); Calcium 8.2 mg/dL (7.8-10.44); Carbon Dioxide 15 mmol/L (23-31); Chloride 108 mmol/L (98-107); Estimated GFR 74; Glucose 289 mg/dL (83-110); Potassium 4.4 mmol/L (3.5-5.1); Sodium 140 mmol/L (136-145)
[2023-11-19] MEDS: HumaLOG 300 UNITS/3 ML VIAL SC PRN ×3 (06:51→17:31)
[2023-11-19] MEDS ORDERED: Carvedilol 25 MG TAB PO SCH (09:00)
[2023-11-19] MEDS ORDERED: Non-Formulary Item 1 EACH (Tiotropium Bromide 4 GM Mist.Inhal) IH SCH (09:00)
[2023-11-19] MEDS: Aspirin 325 mg Enteric Coated Tablet PO SCH (09:36)
[2023-11-19] MEDS: Ferrous Sulfate 325 MG TAB PO SCH (09:36)
[2023-11-19] MEDS: Multivitamin W/ Minerals 1 TAB PO SCH (09:36)
[2023-11-19] MEDS: Doxycycline 100 MG CAP PO SCH ×2 (09:36→19:55)
[2023-11-19] MEDS: Fenofibrate Nanocrystallized 145 MG TAB PO SCH (09:36)
[2023-11-19] MEDS: Ezetimibe 10 MG TAB PO SCH (09:36)
[2023-11-19] MEDS: Atorvastatin Calcium 40 MG TAB PO SCH (09:37)
[2023-11-19] MEDS: Cyanocobalamin (Vitamin B-12) 1,000 MCG TAB PO SCH (09:37)
[2023-11-19] MEDS: guaiFENesin/DM ER PO SCH ×2 (09:37→19:55)
[2023-11-19] MEDS: cefTRIAXone\\ROCEPHIN 1 GM in Sodium Chloride 0.9% 100 ML IVPB SCH (19:54)
[2023-11-20] MEDS: methylPREDNISolone Sod Succ 40 MG VIAL IVP SCH ×3 (00:31→18:22)
[2023-11-20] MEDS: HumaLOG 300 UNITS/3 ML VIAL SC PRN ×5 (00:31→22:02)
[2023-11-20] MEDS: Ipratropium/Albuterol 3 ML NEB NEB SCH ×6 (02:53→22:35)
[2023-11-20 03:59] LABS: #Monocytes 0.3 thou/uL (0.11-0.59); #Neutrophils 9.4 thou/uL (1.40-6.50); %Lymphocytes 2.3 % (21.0-51.0); %Monocytes 2.8 % (0.0-10.0); %Neutrophils 93.3 % (42.0-75.0); Hematocrit 35.4 % (42.0-52.0); Hemoglobin 11.2 g/dL (14.0-18.0); Mean Corpuscular HGB CONC 31.6 g/dL (32.0-36.0); Mean Corpuscular Hemoglobin 28.6 pg (27.0-31.0); Mean Corpuscular Volume 90.5 fl (78.0-98.0); Mean Platelet Volume 11.7 fL (7.4-10.4); Platelet Count 154 10x3/uL (130-400); RBC Distribution Width 13.9 % (11.5-14.5); Red Blood Cell (RBC) Count 3.91 mill/uL (4.70-6.10)
[2023-11-20 04:22] LABS: Anion Gap 15 mmol/L (10-20); BUN (Urea Nitrogen) 20 mg/dL (8.4-25.7); Calc. Creatinine Clearance 80 mL/min (70-130); Calcium 8.4 mg/dL (7.8-10.44); Carbon Dioxide 27 mmol/L (23-31); Chloride 102 mmol/L (98-107); Estimated GFR 67; Glucose 343 mg/dL (83-110); Potassium 3.8 mmol/L (3.5-5.1); Sodium 140 mmol/L (136-145)
[2023-11-20] MEDS: Ferrous Sulfate 325 MG TAB PO SCH (10:47)
[2023-11-20] MEDS: Aspirin 325 mg Enteric Coated Tablet PO SCH (10:47)
[2023-11-20] MEDS: Doxycycline 100 MG CAP PO SCH ×2 (10:47→21:55)
[2023-11-20] MEDS: Multivitamin W/ Minerals 1 TAB PO SCH (10:47)
[2023-11-20] MEDS: Cyanocobalamin (Vitamin B-12) 1,000 MCG TAB PO SCH (10:47)
[2023-11-20] MEDS: guaiFENesin/DM ER PO SCH ×2 (10:47→21:55)
[2023-11-20] MEDS: Fenofibrate Nanocrystallized 145 MG TAB PO SCH (10:47)
[2023-11-20] MEDS: Ezetimibe 10 MG TAB PO SCH (10:47)
[2023-11-20] MEDS: Atorvastatin Calcium 40 MG TAB PO SCH (10:47)
[2023-11-20] MEDS: metFORMIN 500 MG TAB PO SCH (18:21)
[2023-11-20] MEDS: glyBURIDE 5 MG TAB PO SCH (18:22)
[2023-11-20] MEDS: cefTRIAXone\\ROCEPHIN 1 GM in Sodium Chloride 0.9% 100 ML IVPB SCH (21:55)
[2023-11-21] MEDS: Ipratropium/Albuterol 3 ML NEB NEB SCH ×3 (02:45→11:20)
[2023-11-21 04:53] LABS: #Monocytes 0.4 thou/uL (0.11-0.59); #Neutrophils 8.8 thou/uL (1.40-6.50); %Basophils 0.1 % (0.0-1.0); %Lymphocytes 4.8 % (21.0-51.0); %Monocytes 3.7 % (0.0-10.0); %Neutrophils 90.5 % (42.0-75.0); Hematocrit 36.5 % (42.0-52.0); Hemoglobin 11.2 g/dL (14.0-18.0); Mean Corpuscular HGB CONC 30.7 g/dL (32.0-36.0); Mean Corpuscular Hemoglobin 28.5 pg (27.0-31.0); Mean Corpuscular Volume 92.9 fl (78.0-98.0); Mean Platelet Volume 11.8 fL (7.4-10.4); Platelet Count 192 10x3/uL (130-400); Red Blood Cell (RBC) Count 3.93 mill/uL (4.70-6.10); White Blood Cell (WBC) Count 9.8 10x3/uL (4.8-10.8)
[2023-11-21 05:29] LABS: Anion Gap 13 mmol/L (10-20); BUN (Urea Nitrogen) 23 mg/dL (8.4-25.7); Calc. Creatinine Clearance 94 mL/min (70-130); Calcium 8.6 mg/dL (7.8-10.44); Carbon Dioxide 31 mmol/L (23-31); Chloride 102 mmol/L (98-107); Estimated GFR 82; Glucose 244 mg/dL (83-110); Potassium 5.1 mmol/L (3.5-5.1); Sodium 141 mmol/L (136-145)
[2023-11-21] MEDS: HumaLOG 300 UNITS/3 ML VIAL SC PRN (05:34)
[2023-11-21] MEDS: methylPREDNISolone Sod Succ 40 MG VIAL IVP SCH (05:35)
[2023-11-21] MEDS ORDERED: Isosorbide Mononitrate 60 MG ER.TAB PO SCH (09:00)
[2023-11-21] MEDS: glyBURIDE 5 MG TAB PO SCH (09:46)
[2023-11-21] MEDS: Aspirin 325 mg Enteric Coated Tablet PO SCH (09:46)
[2023-11-21] MEDS: Cyanocobalamin (Vitamin B-12) 1,000 MCG TAB PO SCH (09:46)
[2023-11-21] MEDS: Atorvastatin Calcium 40 MG TAB PO SCH (09:46)
[2023-11-21] MEDS: Ezetimibe 10 MG TAB PO SCH (09:46)
[2023-11-21] MEDS: metFORMIN 500 MG TAB PO SCH (09:46)
[2023-11-21] MEDS: Doxycycline 100 MG CAP PO SCH (09:47)
[2023-11-21] MEDS: Fenofibrate Nanocrystallized 145 MG TAB PO SCH (09:47)
[2023-11-21] MEDS: guaiFENesin/DM ER PO SCH (09:47)
[2023-11-21] MEDS: Multivitamin W/ Minerals 1 TAB PO SCH (09:47)
[2023-11-21] MEDS: Ferrous Sulfate 325 MG TAB PO SCH (09:47)
[2023-11-21 12:05] VITALS: BP 148/80; TEMP 97.6
== END 2023-11-21 13:47 | disposition home or self-care (01) | DRG 189 ==
LOC: SURG A 02:17 → OBSVTOIN 18:30
PROVIDERS: ADMIT Student in an Organized Health Care Education/Training Program; ATTEND Family Medicine
DX: J96.21 Acute and chronic respiratory failure with hypoxia (principal); J44.1 Chronic obstructive pulmonary disease with (acute) exacerbation; E11.9 Type 2 diabetes mellitus without complications; I10 Essential (primary) hypertension; E78.5 Hyperlipidemia, unspecified; E66.01 Morbid (severe) obesity due to excess calories; Z68.32 Body mass index [BMI] 32.0-32.9, adult; Z95.1 Presence of aortocoronary bypass graft; I25.10 Atherosclerotic heart disease of native coronary artery without angina pectoris; Z88.5 Allergy status to narcotic agent; Z79.82 Long term (current) use of aspirin; Z79.899 Other long term (current) drug therapy; Z87.891 Personal history of nicotine dependence; E87.6 Hypokalemia; Z79.4 Long term (current) use of insulin
CPT/HCPCS: 36415; 36416; 80048; 85025; 87070; 87205; 87449; 87899; 90471; 90694; 94640; G0008; G0378; J0696; J1815; J2920; J3490; J7620

== ENCOUNTER 2024-08-28 15:19 | Inpatient (IN) | payer MEDICARE ==
[2024-08-28 16:58] LABS: #Basophils 0.05 10x3/uL (0.0-0.2); %Basophils 1.1 % (0.0-1.0); %Eosinophils 5.1 % (0.0-10.0); %Monocytes 8.1 % (0.0-10.0); %Neutrophils 62.5 % (42.0-75.0); Hematocrit 43.3 % (42.0-52.0); Hemoglobin 13.3 g/dL (14.0-18.0); Mean Corpuscular HGB CONC 30.7 g/dL (32.0-36.0); Mean Corpuscular Hemoglobin 28.8 pg (27.0-31.0); Mean Corpuscular Volume 93.7 fL (78.0-98.0); Mean Platelet Volume 10.4 fL (7.4-10.4); Platelet Count 191 10x3/uL (130-400); RBC Distribution Width 13.5 % (11.5-14.5); Red Blood Cell (RBC) Count 4.62 mill/uL (4.70-6.10)
[2024-08-28 17:20] LABS: Troponin I Less than 0.010 ng/mL (< 0.028)
[2024-08-28 17:58] LABS: ALT (SGPT) 18 U/L (8-55); AST (SGOT) 22 U/L (5-34); Albumin 3.9 g/dL (3.4-4.8); Alkaline Phosphatase 92 U/L (40-110); Anion Gap 17 mmol/L (10-20); BUN (Urea Nitrogen) 11 mg/dL (8.4-25.7); Bilirubin, Total 0.5 mg/dL (0.2-1.2); Calc. Creatinine Clearance 0 mL/min (70-130); Calcium 8.8 mg/dL (7.8-10.44); Carbon Dioxide 25 mmol/L (23-31); Chloride 104 mmol/L (98-107); Estimated GFR 87; Globulin 3.5 g/dL (2.4-3.5); Glucose 153 mg/dL (83-110); Potassium 4.8 mmol/L (3.5-5.1); Protein, Total 7.4 g/dL (5.8-8.1); Sodium 141 mmol/L (136-145)
[2024-08-28] MEDS ORDERED: Ondansetron ODT 4 MG TAB PO PRN (18:51)
[2024-08-28] MEDS ORDERED: Ondansetron PF 4 MG/2 ML Vial IVP PRN (18:51)
[2024-08-28] MEDS ORDERED: Acetaminophen 325 MG TAB PO PRN (18:51)
[2024-08-28] MEDS ORDERED: Acetaminophen 650 MG Suppository PR PRN (18:51)
[2024-08-28] MEDS ORDERED: Nitroglycerin 0.4 MG TAB (25 Tab Bottle) SL PRN (18:52)
[2024-08-28] MEDS ORDERED: Ipratropium/Albuterol 3 ML NEB NEB PRN (18:54)
[2024-08-28] MEDS ORDERED: Dextrose 50% Abboject 50 ML SYRINGE SLOW IVP PRN (19:19)
[2024-08-28] MEDS ORDERED: Glucagon 1 MG/ML KIT IM PRN (19:19)
[2024-08-28] MEDS ORDERED: Dextrose 5% in Water 1,000 ML IV PRN (19:19)
[2024-08-28 20:33] LABS: Magnesium 1.5 mg/dL (1.6-2.6)
[2024-08-28 20:43] LABS: Troponin I Less than 0.010 ng/mL (< 0.028)
[2024-08-28 21:20] VITALS: BMI 31.6
[2024-08-28] MEDS ORDERED: Electrolyte Replacement Protocol 1 EACH FS SCH (22:15)
[2024-08-28] MEDS: Famotidine 20 MG TAB PO SCH (22:47)
[2024-08-28] MEDS: Magnesium Sulfate In Water 4 GM in Premix 1 BAG IVPB SCH (22:47)
[2024-08-28] MEDS: Furosemide 40 MG (4 mL) VIAL SLOW IVP SCH (22:47)
[2024-08-28] MEDS: Famotidine/PF 20 mg/2ml Vial SLOW IVP SCH (23:04)
[2024-08-28] MEDS: Magnesium Sulfate 4 GM in Sodium Chloride 0.9% 250 ML 250 ML IVPB SCH (23:05)
[2024-08-28 23:11] LABS: Troponin I Less than 0.010 ng/mL (< 0.028)
[2024-08-29 05:25] LABS: #Basophils 0.03 10x3/uL (0.0-0.2); %Basophils 0.7 % (0.0-1.0); %Eosinophils 6.3 % (0.0-10.0); %Lymphocytes 22.3 % (21.0-51.0); %Monocytes 9.7 % (0.0-10.0); Hematocrit 44.9 % (42.0-52.0); Mean Corpuscular HGB CONC 31.2 g/dL (32.0-36.0); Mean Corpuscular Hemoglobin 28.1 pg (27.0-31.0); Mean Platelet Volume 10.4 fL (7.4-10.4); Platelet Count 184 10x3/uL (130-400); RBC Distribution Width 13.5 % (11.5-14.5); Red Blood Cell (RBC) Count 4.99 mill/uL (4.70-6.10)
[2024-08-29 05:33] LABS: Anion Gap 15 mmol/L (10-20); BUN (Urea Nitrogen) 12 mg/dL (8.4-25.7); Calc. Creatinine Clearance 79 mL/min (70-130); Calcium 8.9 mg/dL (7.8-10.44); Carbon Dioxide 29 mmol/L (23-31); Chloride 100 mmol/L (98-107); Estimated GFR 69; Glucose 269 mg/dL (83-110); Magnesium 2.1 mg/dL (1.6-2.6); Potassium 3.5 mmol/L (3.5-5.1); Sodium 140 mmol/L (136-145)
[2024-08-29] MEDS: Furosemide 40 MG (4 mL) VIAL SLOW IVP SCH (06:34)
[2024-08-29] MEDS: Potassium Chloride 20 MEQ TAB PO SCH (08:24)
[2024-08-29] MEDS: Enoxaparin 40 MG (0.4 mL) SYRINGE SC SCH (08:25)
[2024-08-29] MEDS: metFORMIN 500 MG TAB PO SCH (17:50)
[2024-08-29] MEDS: glyBURIDE 5 MG TAB PO SCH (17:50)
[2024-08-29] MEDS: Insulin Regular, Human 100 UNIT/ML 10 ML VIAL SC PRN (22:03)
[2024-08-30] MEDS: Atorvastatin Calcium 40 MG TAB PO SCH (08:47)
[2024-08-30] MEDS: Ezetimibe 10 MG TAB PO SCH (08:47)
[2024-08-30] MEDS: Fenofibrate Nanocrystallized 145 MG TAB PO SCH (08:47)
[2024-08-30] MEDS: Pioglitazone HCl 45 MG TAB PO SCH (08:47)
[2024-08-30] MEDS: Isosorbide Mononitrate 60 MG ER.TAB PO SCH (08:47)
[2024-08-30] MEDS: Insulin Regular, Human 100 UNIT/ML 10 ML VIAL SC PRN (11:48)
[2024-08-30 16:22] VITALS: BP 99/57; TEMP 97.8
== END 2024-08-30 18:10 | disposition home or self-care (01) | DRG 291 ==
LOC: ERS 15:19 → 2NO 18:43 → OBSVTOIN 08-29 15:52
PROVIDERS: ADMIT Family Medicine; ATTEND Internal Medicine
DX: I11.0 Hypertensive heart disease with heart failure (principal); I50.31 Acute diastolic (congestive) heart failure; I25.10 Atherosclerotic heart disease of native coronary artery without angina pectoris; E83.42 Hypomagnesemia; J44.9 Chronic obstructive pulmonary disease, unspecified; E11.9 Type 2 diabetes mellitus without complications; Z95.0 Presence of cardiac pacemaker; I35.0 Nonrheumatic aortic (valve) stenosis; E78.00 Pure hypercholesterolemia, unspecified; G47.33 Obstructive sleep apnea (adult) (pediatric); Z88.8 Allergy status to other drugs, medicaments and biological substances; Z98.890 Other specified postprocedural states; Z87.891 Personal history of nicotine dependence; Z95.1 Presence of aortocoronary bypass graft; Z79.899 Other long term (current) drug therapy
CPT/HCPCS: 36415; 36416; 71045; 80048; 80053; 83735; 83880; 84443; 84484; 85025; 93005; 93306; 94760; 96372; 96374; 96375; 96376; G0378; J1650; J1815; J1940; J3475